=== PATIENT | male | born 1960 | race Caucasian/White ===

== ENCOUNTER 2019-05-11 19:41 | Observation (INO) | payer BC ==
[2019-05-11] MEDS ORDERED: LABETALOL 5 MG/ML VIAL MDV IVP STA (20:21)
[2019-05-11 20:41] LABS: Basophils # (A) 0.3 k/uL (0-0.2); Basophils % (A) 2 %; Eosinophils # (A) 0.2 k/uL (0-0.7); Eosinophils % (A) 2 %; HGB 16.2 gm/dL (13.0-17.5); Lymphocytes % (A) 7 %; MCH 34.3 pg (25.0-35.0); MCHC 33.9 g/dL (31.0-37.0); MCV 101.4 fL (80.0-100.0); Macrocytosis Slight; Mean Platelet Volume 7.5; Monocytes # (A) 0.9 k/uL (0-1.0); Monocytes % (A) 7 %; Neutrophils # (A) 10.3 k/uL (1.3-7.7); Neutrophils % (A) 80 %; Platelet Count 209 k/uL (150-450); RBC 4.73 m/uL (4.30-5.90); RDW 12.9 % (11.5-15.5); WBC 12.9 k/uL (3.8-10.6)
[2019-05-11 20:50] LABS: INR 0.9 (<1.2); Partial Thromboplastin Time 24.9 sec (22.0-30.0); Prothrombin Time 9.9 sec (9.0-12.0)
[2019-05-11 20:53] LABS: ALT 33 U/L (4-49); AST 61 U/L (17-59); African American GFR (CKD) >90 (>60 ml/min/1.73 sqM); Albumin 4.5 g/dL (3.5-5.0); Alkaline Phosphatase 64 U/L (38-126); Anion Gap 11 mmol/L; Blood Urea Nitrogen 11 mg/dL (9-20); Calcium 9.9 mg/dL (8.4-10.2); Carbon Dioxide 23 mmol/L (22-30); Chloride 97 mmol/L (98-107); Glucose 111 mg/dL (74-99); Magnesium 1.8 mg/dL (1.6-2.3); Non-African American GFR(CKD) >90 (>60 ml/min/1.73 sqM); Potassium 4.5 mmol/L (3.5-5.1); Sodium 131 mmol/L (137-145); Total Bilirubin 1.1 mg/dL (0.2-1.3); Total Protein 7.9 g/dL (6.3-8.2)
--- NOTE | 2019-05-11 21:19 | XR ---
EXAMINATION TYPE: XR chest 2V DATE OF EXAM: 05/11/2019 COMPARISON: NONE HISTORY: Chest pain TECHNIQUE: 2 views FINDINGS: Heart and mediastinum are normal. Lungs are clear. Diaphragm is normal. Bony thorax appears normal. IMPRESSION: Normal chest.
--- NOTE | 2019-05-11 21:48 | CT ---
EXAMINATION TYPE: CT angio thor/abd pel aorta DATE OF EXAM: 05/11/2019 COMPARISON: None HISTORY: Chest/back pain and hypertension. CT DLP: 2474.8 mGycm Automated exposure control for dose reduction was used. CONTRAST: Performed without and with IV Contrast, patient injected with 100ml mL of Isovue 370. Multiple axial sections were obtained from the thoracic inlet to the floor the pelvis without and sub sequently with intravenous contrast. There are 3-D post processed images. There is diffuse pulmonary emphysema. There is bullous disease. There is no evidence of a pulmonary m ass. There is no mediastinal adenopathy. There is 4.2 cm aneurysm of the ascending aorta. There is no diss ection. Heart size is normal. There is arterial flow in the celiac artery and superior mesenteric artery. There is arterial flow in the renal arteries bilaterally. There is mild plaque formation on the lower abdominal aorta. There i s no aortic aneurysm. There is arterial flow in the iliac and femoral arteries bilaterally. I see no sign of hemodynamic stenosis. There is no aortic dissection. Liver spleen stomach pancreas gallbladder appear normal. Bile ducts are not dilated. There is no adre nal mass. Kidneys show satisfactory contrast opacification. There is no hydronephrosis. Appendix appe ars normal. Bladder distends smoothly. There is no inguinal hernia. There is no free fluid in the pel vis. There is no ascites or free air. There is no evidence of a bowel obstruction. There is no mesenteric edema. There are numerous scattered sigmoid diverticula. There is no sign of diverticulitis. Lumbar vertebra have normal alignment. There is narrowing at L4-5 L5-S1 disc spaces. There is vacuum disc phenomenon. Posterior elements are intact. Sacrum is intact. Bony pelvis appears intact. There i s small umbilical hernia that contains fat. IMPRESSION: Mild atherosclerotic vascular disease. No evidence of hemodynamic stenosis. No evidence of arterial d issection. Mild aneurysm ascending aorta. Bullous emphysema.
[2019-05-11] MEDS ORDERED: NITROGLYCERIN SL TABS 0.4 MG TAB SUBLINGUAL PRN (22:23)
--- NOTE | 2019-05-11 22:31 | ED ---
General Adult HPI - General Source: patient, EMS Mode of arrival: EMS Limitations: no limitations <Yanna Arevalo - Last Filed: 05/12/19 00:07> <Cheri Rivera - Last Filed: 05/13/19 15:15> - General Chief complaint: Chest Pain Stated complaint: Chest Pain Time Seen by Provider: 05/11/19 19:46 - History of Present Illness Initial comments: 58-year-old male patient presents to the emergency department today for evaluation of chest pain. Patient states the pain started this morning. States with the pain he had onset of nausea, sweats, and mild shortness of breath. States the pain does radiate through to his back. Denies any change to the pain with deep breathing or movement. Denies any dizziness or weakness. Patient states he did have she with chest pain around 10 years ago, states his troponin was elevated, states he had a negative stress test at that time. He has no further evaluation by cardiology, stress test, cardiac catheterization since. Patient was brought in by ambulance, he was given 3 nitro, states this did improve his chest pain. States his back pain has persisted. Patient does have history of hypertension, chronic alcohol use, and is a cigarette smoker. Patient recently had his blood pressure medications increased by his physician. Patient denies any known aortic aneurysm. Patient denies any recent rash, fever, chills, diarrhea, constipation, back pain, numbness, tingling, dizziness, weakness, hematuria, dysuria, urinary urgency, urinary frequency, headache, visual changes, or any other complaints. (Yanna Arevalo) - Related Data Home Medications Medication Instructions Recorded Confirmed Hydrochlorothiazide 25 mg PO DAILY 05/11/19 05/11/19 Lisinopril 40 mg PO DAILY 05/11/19 05/11/19 Previous Rx's Medication Instructions Recorded amLODIPine [Norvasc] 5 mg PO DAILY #90 tab 05/12/19 Allergies Allergy/AdvReac Type Severity Reaction Status Date / Time Penicillins Allergy Anaphylaxis Verified 05/11/19 23:05 Review of Systems ROS Other: All systems not noted in ROS Statement are negative. <Yanna Arevalo - Last Filed: 05/12/19 00:07> ROS Other: All systems not noted in ROS Statement are negative. <Cheri Rivera - Last Filed: 05/13/19 15:15> ROS Statement: Those systems with pertinent positive or pertinent negative responses have been documented in the HPI. Past Medical History Past Medical History: Hypertension, Sleep Apnea/CPAP/BIPAP Past Surgical History: No Surgical Hx Reported Smoking Status: Current every day smoker Past Alcohol Use History: Daily, Heavy Past Drug Use History: None Reported <Yanna Arevalo - Last Filed: 05/12/19 00:07> General Exam Limitations: no limitations General appearance: alert, in no apparent distress, other (This is a well- developed, well-nourished, nontoxic-appearing adult male patient in no acute distress. Vital signs upon presentation are temperature 98.6F, pulse 92, respirations 18, blood pressure 192/116, pulse ox 96% on room air.) Eye exam: Present: normal appearance, PERRL, EOMI. Absent: scleral icterus, conjunctival injection, periorbital swelling ENT exam: Present: normal exam, normal oropharynx, mucous membranes moist Respiratory exam: Present: normal lung sounds bilaterally. Absent: respiratory distress, wheezes, rales, rhonchi, stridor Cardiovascular Exam: Present: regular rate, normal rhythm, normal heart sounds. Absent: systolic murmur, diastolic murmur, rubs, gallop, clicks GI/Abdominal exam: Present: soft, tenderness (Midepigastric), normal bowel sounds. Absent: distended, guarding, rebound, rigid Neurological exam: Present: alert, oriented X3, CN II-XII intact Psychiatric exam: Present: normal affect, normal mood Skin exam: Present: warm, dry, intact, normal color. Absent: rash <Yanna Arevalo - Last Filed: 05/12/19 00:07> Course Vital Signs 05/11/19 05/11/19 05/11/19 19:50 21:15 22:49 Temperature 98.6 F Pulse Rate 92 96 82 Respiratory 18 18 18 Rate Blood Pressure 192/116 130/93 160/105 O2 Sat by Pulse 96 98 98 Oximetry 05/12/19 05/12/19 05/12/19 01:08 02:03 05:08 Temperature Pulse Rate 78 85 75 Respiratory 18 18 19 Rate Blood Pressure 125/84 156/87 131/90 O2 Sat by Pulse 97 98 98 Oximetry 05/12/19 08:09 Temperature 98.0 F Pulse Rate 74 Respiratory 16 Rate Blood Pressure 141/100 O2 Sat by Pulse 98 Oximetry EKG Findings - EKG Comments: EKG Findings:: EKG obtained at 1948 shows normal sinus rhythm with a ventricular rate of 89, GA interval 150, QRS duration 100, QT 338, QTC 411. No evidence of ST elevation or depression. <Yanna Arevalo - Last Filed: 05/12/19 00:07> Medical Decision Making - Lab Data Result diagrams: 05/11/19 19:56 05/11/19 19:56 - Radiology Data Radiology results: report reviewed, image reviewed <Yanna Arevalo - Last Filed: 05/12/19 00:07> - Lab Data Result diagrams: 05/12/19 07:23 05/12/19 07:23 <Cheri Rivera - Last Filed: 05/13/19 15:15> - Medical Decision Making 58 year-old male patient presents to the emergency department today for evaluation of chest pain with radiation through to his back. With this patient had associated sweats, nausea, one episode of vomiting, and shortness of breath. Upon arrival blood pressure was quite elevated at 191/109. Labs reviewed and did reveal a negative troponin, negative lipase. We did perform CT angiography of the thoracic abdominal and pelvic aorta which showed evidence for an ascen ding aortic aneurysm measuring 4.2 cm. EKG showed no evidence for ST depression or elevation. I did discuss findings and results with the patient. Given risk factors including alcohol abuse, cigarette use, hypertension, and family history of cardiac [id number] male to the hospital for serial troponins and evaluation by cardiology in the morning. I did inform patient of all results. He is in agreement with this plan. He'll be admitted to Dr. Hughes from [facility]. (Yanna Arevalo) I was available for consultation in the emergency department. The history and physical exam were done by the midlevel provider. I was consulted for this patients care. I reviewed the case with the midlevel provider and based on their presentation of the patient, I agree with the assessment, medical decision making and plan of care as documented. Chart was dictated using [employer] dictation software. Attempts were made to correct any dictation errors however some typographical errors may persist. (Cheri Rivera) - Lab Data Lab Results 05/11/19 05/11/19 05/11/19 Range/Units 19:56 19:56 19:56 WBC 12.9 H (3.8-10.6) k/uL RBC 4.73 (4.30-5.90) m/uL Hgb 16.2 (13.0-17.5) gm/dL Hct 48.0 (39.0-53.0) % MCV 101.4 H (80.0-100.0) fL MCH 34.3 (25.0-35.0) pg MCHC 33.9 (31.0-37.0) g/dL RDW 12.9 (11.5-15.5) % Plt Count 209 (150-450) k/uL Neutrophils % 80 % Lymphocytes % 7 % Monocytes % 7 % Eosinophils % 2 % Basophils % 2 % Neutrophils # 10.3 H (1.3-7.7) k/uL Lymphocytes # 1.0 (1.0-4.8) k/uL Monocytes # 0.9 (0-1.0) k/uL Eosinophils # 0.2 (0-0.7) k/uL Basophils # 0.3 H (0-0.2) k/uL Macrocytosis Slight PT 9.9 (9.0-12.0) sec INR 0.9 (<1.2) APTT 24.9 (22.0-30.0) sec Sodium 131 L (137-145) mmol/L Potassium 4.5 (3.5-5.1) mmol/L Chloride 97 L (98-107) mmol/L Carbon Dioxide 23 (22-30) mmol/L Anion Gap 11 mmol/L BUN 11 (9-20) mg/dL Creatinine 0.72 (0.66-1.25) mg/dL Est GFR (CKD-EPI)AfAm >90 (>60 ml/min/1.73 sqM) Est GFR (CKD-EPI)NonAf >90 (>60 ml/min/1.73 sqM) Glucose 111 H (74-99) mg/dL Calcium 9.9 (8.4-10.2) mg/dL Magnesium 1.8 (1.6-2.3) mg/dL Total Bilirubin 1.1 (0.2-1.3) mg/dL AST 61 H (17-59) U/L ALT 33 (4-49) U/L Alkaline Phosphatase 64 (38-126) U/L Troponin I (0.000-0.034) ng/mL Total Protein 7.9 (6.3-8.2) g/dL Albumin 4.5 (3.5-5.0) g/dL Lipase 137 (23-300) U/L 05/11/19 Range/Units 19:56 WBC (3.8-10.6) k/uL RBC (4.30-5.90) m/uL Hgb (13.0-17.5) gm/dL Hct (39.0-53.0) % MCV (80.0-100.0) fL MCH (25.0-35.0) pg MCHC (31.0-37.0) g/dL RDW (11.5-15.5) % Plt Count (150-450) k/uL Neutrophils % % Lymphocytes % % Monocytes % % Eosinophils % % Basophils % % Neutrophils # (1.3-7.7) k/uL Lymphocytes # (1.0-4.8) k/uL Monocytes # (0-1.0) k/uL Eosinophils # (0-0.7) k/uL Basophils # (0-0.2) k/uL Macrocytosis PT (9.0-12.0) sec INR (<1.2) APTT (22.0-30.0) sec Sodium (137-145) mmol/L Potassium (3.5-5.1) mmol/L Chloride (98-107) mmol/L Carbon Dioxide (22-30) mmol/L Anion Gap mmol/L BUN (9-20) mg/dL Creatinine (0.66-1.25) mg/dL Est GFR (CKD-EPI)AfAm (>60 ml/min/1.73 sqM) Est GFR (CKD-EPI)NonAf (>60 ml/min/1.73 sqM) Glucose (74-99) mg/dL Calcium (8.4-10.2) mg/dL Magnesium (1.6-2.3) mg/dL Total Bilirubin (0.2-1.3) mg/dL AST (17-59) U/L ALT (4-49) U/L Alkaline Phosphatase (38-126) U/L Troponin I <0.012 (0.000-0.034) ng/mL Total Protein (6.3-8.2) g/dL Albumin (3.5-5.0) g/dL Lipase (23-300) U/L - Radiology Data Two-view x-ray of the chest is obtained. Report reviewed in its entirety. Impression by Dr. German shows normal chest. CT angiography of the thoracic, abdominal, pelvic aorta was obtained. Report was reviewed in its entirety. Impression by Dr. Kearney shows mild atherosclerotic vascular disease. No evidence of hemodynamic stenosis. No evidence of arterial dissection. Mild aneurysm ascending aorta. Bolus emphysema. (Yanna Arevalo) Disposition Decision to Admit Reason: Admit from EC Decision Date: 05/11/19 Decision Time: 22:30 <Yanna Arevalo - Last Filed: 05/12/19 00:07> <Cheri Rivera - Last Filed: 05/13/19 15:15> Clinical Impression: Chest pain, Hypertension, Ascending aortic aneurysm Disposition: ADMITTED IP TO THIS [facility] Condition: Stable
[2019-05-12] MEDS ORDERED: hydrALAZINE HCL 25 MG TAB PO STA (00:36)
--- NOTE | 2019-05-12 00:40 | P.HPIM ---
History of Present Illness H&P Date: 05/12/19 The patient is a 58 yo M with a PMH of tobacco abuse and HTN presented to the ED with complaints of chest pain. The patient reports that after working up this morning at around 8 AM, he suddenly developed a substernal chest discomfort, 4/10, radiating to the back, pressure-like in nature, with associated nausea, and headache. The patient reports that he never had such symptoms the past. The pain was nonexertional with no clear alleviating or exacerbating factors. He checked his blood pressure at home and noted that it was significantly high with systolic in the 190s. He reports compliance with his antihypertensives at home. He denied shortness of breath, palpitations, dizziness, or diaphoresis. He reports that the pain continued all day until he received a nitroglycerin upon presentation to the emergency room, which resolved it. Patient underwent an extensive evaluation in the emergency room with an EKG showing normal sinus rhythm at [address]/T-wave changes noted. Thoracic aorta CT revealed mild ascending aortic aneurysm with no evidence of dissection along with some bullous emphysema. Chest x-ray was unremarkable. Laboratory evaluation revealed a troponin less than 0.012, WBC count 4.9, hemoglobin 16.2, platelets 209, sodium 131, potassium 4.5, BUN 11, creatinine 0.72, and glucose 111. The patient is being admitted to the medicine service for evaluation by cardiology. Review of Systems Pertinent positives and negatives as discussed in HPI, a complete review of systems was performed and all other systems are negative. Past Medical History Past Medical History: Hypertension, Sleep Apnea/CPAP/BIPAP Past Surgical History: No Surgical Hx Reported Smoking Status: Current every day smoker Past Alcohol Use History: Daily, Heavy Past Drug Use History: None Reported Medications and Allergies Home Medications Medication Instructions Recorded Confirmed Type Hydrochlorothiazide 25 mg PO DAILY 05/11/19 05/11/19 History Lisinopril 40 mg PO DAILY 05/11/19 05/11/19 History Allergies Allergy/AdvReac Type Severity Reaction Status Date / Time Penicillins Allergy Anaphylaxis Verified 05/11/19 23:05 Physical Exam Vitals: Vital Signs Temp Pulse Resp BP Pulse Ox 05/11/19 22:49 82 18 160/105 98 05/11/19 21:15 96 18 130/93 98 05/11/19 19:50 98.6 F 92 18 192/116 96 Intake and Output 05/11/19 05/11/19 05/12/19 14:59 22:59 06:59 Other: Weight 102.058 kg General: non toxic, no distress, appears at stated age, obese Derm: no unusual rashes/lesions no unusual ecchymoses, warm, dry Head: atraumatic, normocephalic, symmetric Eyes: EOMI, no lid lag, anicteric sclera, pupils equal round reactive to light ENT: Nose and ears atraumatic, no thrush, no pharyngeal erythema Neck: No thyromegaly, no cervical lymphadenopathy, trachea midline, supple Mouth: no lip lesion, mucus membranes moist Cardiovascular: S1S2 reg, no murmur, positive posterior tibial pulse bilateral, no edema, capillary refill less than 2 seconds Lungs: Mild expiratory wheezing appreciated, no rhonchi, no rales , no accessory muscle use Abdominal: soft, nontender to palpation, no guarding, no appreciable organomegaly, normal bowel sounds Ext: no gross muscle atrophy, muscle strength 5 out of 5 in all 4 extremities grossly, no contractures, Neuro: CN II-XI grossly intact, light touch intact all 4 extremities, finger to nose within normal limits, Psych: Alert, oriented, appropriate affect Results CBC & Chem 7: 05/11/19 19:56 05/11/19 19:56 Labs: Abnormal Lab Results - Last 24 Hours (Table) 05/11/19 05/11/19 Range/Units 19:56 19:56 WBC 12.9 H (3.8-10.6) k/uL MCV 101.4 H (80.0-100.0) fL Neutrophils # 10.3 H (1.3-7.7) k/uL Basophils # 0.3 H (0-0.2) k/uL Sodium 131 L (137-145) mmol/L Chloride 97 L (98-107) mmol/L Glucose 111 H (74-99) mg/dL AST 61 H (17-59) U/L Assessment and Plan Plan: Chest pain, rule out ACS -Cardiology consulted -Cardiac monitoring -Trend troponin -Continue with aspirin Hypertensive urgency -Continue with home medications -Start hydralazine orally Ascending aorta aneurysm -Patient advised on the importance of smoking cessation -Advised for the need of f/u Leukocytosis -No signs of acute infection -Likely due to stress -Monitor CBC for now Hyponatremia -Monitor BMP DVT prophylaxis -Heparin subq The patient is admitted with an anticipated less than 2 midnight stay for evaluation of chest pain CODE STATUS: Full Code Discussed with: Patient Anticipated discharge date: 1-[address]: Home A total of 35 minutes was spent on the care of this complex patient more than 50% of the time was spent in counseling and care coordination.
[2019-05-12] MEDS ORDERED: ACETAMINOPHEN TAB 325 MG TAB PO STA (02:01)
[2019-05-12 07:43] LABS: HCT 46.5 % (39.0-53.0); HGB 15.5 gm/dL (13.0-17.5); MCH 34.5 pg (25.0-35.0); MCHC 33.4 g/dL (31.0-37.0); MCV 103.2 fL (80.0-100.0); Macrocytosis Slight; Mean Platelet Volume 7.1; Platelet Count 192 k/uL (150-450); RBC 4.51 m/uL (4.30-5.90); RDW 13.1 % (11.5-15.5); WBC 6.6 k/uL (3.8-10.6)
[2019-05-12] MEDS ORDERED: HEPARIN SODIUM,PORCINE 5,000 UNIT/ML 1 ML VIAL SQ SCH (08:00)
[2019-05-12 08:08] LABS: African American GFR (CKD) >90 (>60 ml/min/1.73 sqM); Anion Gap 7 mmol/L; Blood Urea Nitrogen 11 mg/dL (9-20); Calcium 9.7 mg/dL (8.4-10.2); Carbon Dioxide 27 mmol/L (22-30); Chloride 99 mmol/L (98-107); Cholesterol 196 mg/dL (<200); Glucose 113 mg/dL (74-99); HDL Cholesterol 54 mg/dL (40-60); LDL Cholesterol,Calculated 93 mg/dL (0-99); Non-African American GFR(CKD) >90 (>60 ml/min/1.73 sqM); Potassium 4.6 mmol/L (3.5-5.1); Sodium 133 mmol/L (137-145); Triglycerides 247 mg/dL (<150)
[2019-05-12 08:09] VITALS: RESP 16
[2019-05-12] MEDS ORDERED: ASPIRIN 325 MG TAB PO SCH (09:00)
[2019-05-12] MEDS ORDERED: LISINOPRIL 20 MG TAB PO SCH (09:00)
[2019-05-12] MEDS ORDERED: HYDROCHLOROTHIAZIDE 25 MG TAB PO SCH (09:00)
[2019-05-12] MEDS ORDERED: CAFFEINE CITRATE 60 MG/3 ML VIAL IV PRN (09:24)
[2019-05-12] MEDS ORDERED: AMINOPHYLLINE 500 MG/20 ML VIAL IV PRN (09:24)
[2019-05-12] MEDS ORDERED: REGADENOSON 0.4 MG/5 ML SYRINGE IV ONE (09:24)
[2019-05-12] MEDS ORDERED: amLODIPine 5 MG TAB PO SCH (09:30)
[2019-05-12] MEDS ORDERED: ALPRAZolam 0.25 MG TAB PO STA (10:23)
[2019-05-12] MEDS ORDERED: NICOTINE 21MG/24HR PATCH TRANSDERM SCH (10:30)
[2019-05-12 11:10] VITALS: TEMP 98.2
--- NOTE | 2019-05-12 11:45 | P.CRDCN ---
History of Present Illness History of present illness: HISTORY OF PRESENTING ILLNESS This is a pleasant 58-year-old male past medical history significant for hypertension, COPD, chronic nicotine dependence, daily heavy alcohol use and chronic liver disease. The patient is here working from [place]. He does not follow in the office with a guardian family member in [place]. We have been asked to see in consultation for chest pain. He has been here working for a few weeks. He states he has not a very active job currently however while he was at work yesterday he was having frequent episodes of diaphoresis and exertional shortness of breath associated with discomfort in the chest and some mild nausea. His symptoms occurred at rest and were not associated with activity or exertion. At times the pain would radiate straight through to his back. EMS gave nitroglycerin on arrival and this should resolve his chest discomfort howev er he continues to have pain in the mid scapular region of his back that is worse with movement and improved with deep palpation. DIAGNOSTICS EKG reveals sinus mechanism with no acute ST or T wave abnormalities noted. Chest xray negative for an acute cardiopulmonary process. CT thoracic aorta negative for dissection with evidence of atherosclerotic disease. Laboratory reviewed, to be WBC on admission 12.9 repeat today 6.6, hemoglobin 15.5, platelets 192, sodium 133, potassium 4.6, creatinine 0.87, magnesium 1.8, cardiac enzymes negative 3, LDL 93, triglycerides 247. Current cardiac medications include lisinopril 40 mg daily and hydrochlorothiazide 25 mg daily. REVIEW OF SYSTEMS At the time of my exam: CONSTITUTIONAL: Denies fever or chills. CARDIOVASCULAR: Denies chest pain, shortness of breath, orthopnea, PND or palpitations. RESPIRATORY: Denies cough. GASTROINTESTINAL: Denies abdominal pain, diarrhea, constipation, nausea or vomiting. MUSCULOSKELETAL: Denies myalgias. NEUROLOGIC: Denies numbness, tingling or weakness. ENDOCRINE: Denies fatigue, weight change, polydipsia or polyurina. GENITOURINARY: Denies burning, hematuria or urgency with micturation. HEMATOLOGIC: Denies history of anemia or bleeding. PHYSICAL EXAMINATION Blood pressure 141/100 heart rate 74 afebrile and maintaining oxygen saturation on room air. CONSTITUTIONAL: No apparent distress. Generalized rubor to the face and neck. HEENT: Head is normocephalic. Pupils are equal, round. Sclerae anicteric. Mucous membranes of the mouth are moist. No JVD. No carotid bruit. CHEST EXAMINATION: Faint expiratory wheezes throughout, no rales or rhonchi. No chest wall tenderness is noted on palpation or with deep breathing. HEART EXAMINATION: Regular rate and rhythm. S1, S2 heard. No murmurs, gallops or rub. ABDOMEN: Soft, nontender. Positive bowel sounds. EXTREMITIES: 2+ peripheral pulses, no lower extremity edema and no calf tenderness. NEUROLOGIC EXAMINATION: Patient is awake, alert and oriented x3. ASSESSMENT Chest pain, atypical. An acute event has been ruled out. Hypertension, uncontrolled Hypertriglyceridemia Chronic nicotine dependence Heavy daily alcohol abuse PLAN An acute event has been ruled out. Obtain 2D echocardiogram and doppler study to assess cardiac structure and function. Perform Lexiscan stress test to assess for reversible cardiac ischemia. Continue lisinopril and hydrochlorothiazide as previously ordered. Initiate amlodipine 5 mg daily. Watch closely for alcohol withdrawl as he is already quite anxious appearing. Give one dose of xanax and apply nicotine patch. Further recommendations to follow based on clinical course. Thank you kindly for this consultation. Nurse Practitioner note has been reviewed, I agree with a documented findings and plan of care. Patient was seen and examined. Past Medical History Past Medical History: COPD, Hypertension, Liver Disease, Sleep Apnea/CPAP/BIPAP Additional Past Medical History / Comment(s): Uncontrolled HTN, chest pain approximately 10 yrs ago with negative stress test, currently being evaluated for PAULA (pt states he failed first part of test), frequent headaches, bronchitis, fatty liver, umbilical hernia. History of Any Multi-Drug Resistant Organisms: None Reported Past Surgical History: Orthopedic Surgery Additional Past Surgical History / Comment(s): Colonoscopy, ganglion cyst removed R wrist, lump removed back of head. Past Anesthesia/Blood Transfusion Reactions: No Reported Reaction Smoking Status: Current every day smoker - Past Family History Father Family Medical History: Myocardial Infarction ([place]) Additional Family Medical History / Comment(s): Father of a [place] at the age of 78yrs. Mother Family Medical History: Vascular Disorder Additional Family Medical History / Comment(s): Mother is alive. She has caratid artery disease. Medications and Allergies Home Medications Medication Instructions Recorded Confirmed Type Hydrochlorothiazide 25 mg PO DAILY 05/11/19 05/11/19 History Lisinopril 40 mg PO DAILY 05/11/19 05/11/19 History Allergies Allergy/AdvReac Type Severity Reaction Status Date / Time Penicillins Allergy Anaphylaxis Verified 05/11/19 23:05 Physical Exam Vitals: Vital Signs Temp Pulse Resp BP Pulse Ox 05/12/19 08:09 98.0 F 74 16 141/100 98 05/12/19 05:08 75 19 131/90 98 05/12/19 02:03 85 18 156/87 98 05/12/19 01:08 78 18 125/84 97 05/11/19 22:49 82 18 160/105 98 05/11/19 21:15 96 18 130/93 98 05/11/19 19:50 98.6 F 92 18 192/116 96 Intake and Output 05/11/19 05/12/19 05/12/19 22:59 06:59 14:59 Other: Weight 102.058 kg 102.058 kg Results 05/12/19 07:23 05/12/19 07:23 Cardiac Enzymes 05/11/19 05/11/19 05/12/19 Range/Units 19:56 19:56 01:58 AST 61 H (17-59) U/L Troponin I <0.012 <0.012 (0.000-0.034) ng/mL 05/12/19 Range/Units 08:13 AST (17-59) U/L Troponin I <0.012 (0.000-0.034) ng/mL Coagulation 05/11/19 Range/Units 19:56 PT 9.9 (9.0-12.0) sec APTT 24.9 (22.0-30.0) sec Lipids 05/12/19 Range/Units 07:23 Triglycerides 247 H (<150) mg/dL Cholesterol 196 (<200) mg/dL HDL Cholesterol 54 (40-60) mg/dL CBC 05/11/19 05/12/19 Range/Units 19:56 07:23 WBC 12.9 H 6.6 (3.8-10.6) k/uL RBC 4.73 4.51 (4.30-5.90) m/uL Hgb 16.2 15.5 (13.0-17.5) gm/dL Hct 48.0 46.5 (39.0-53.0) % Plt Count 209 192 (150-450) k/uL Comprehensive Metabolic Panel 05/11/19 05/12/19 Range/Units 19:56 07:23 Sodium 131 L 133 L (137-145) mmol/L Potassium 4.5 4.6 (3.5-5.1) mmol/L Chloride 97 L 99 (98-107) mmol/L Carbon Dioxide 23 27 (22-30) mmol/L BUN 11 11 (9-20) mg/dL Creatinine 0.72 0.87 (0.66-1.25) mg/dL Glucose 111 H 113 H (74-99) mg/dL Calcium 9.9 9.7 (8.4-10.2) mg/dL AST 61 H (17-59) U/L ALT 33 (4-49) U/L Alkaline Phosphatase 64 (38-126) U/L Total Protein 7.9 (6.3-8.2) g/dL Albumin 4.5 (3.5-5.0) g/dL Current Medications Generic Name Dose Route Start Last Admin Trade Name Freq PRN Reason Stop Dose Admin Aminophylline 100 mg 05/12/19 09:24 Aminophylline IV ONCE PRN Patient Response Amlodipine Besylate 5 mg 05/12/19 09:30 05/12/19 10:37 Norvasc PO 5 mg DAILY TEMO Administration Aspirin 325 mg 05/12/19 09:00 05/12/19 08:37 Aspirin PO 325 mg DAILY TEMO Administration Caffeine Citrate 60 mg 05/12/19 09:24 Cafcit Inj IV 06/11/19 09:25 ONCE PRN Patient Response Heparin Sodium (Porcine) 5,000 unit 05/12/19 08:00 05/12/19 08:37 Heparin SQ 5,000 unit Q8HR TEMO Administration Hydrochlorothiazide 25 mg 05/12/19 09:00 05/12/19 08:37 Hydrodiuril PO 25 mg DAILY TEMO Administration Lisinopril 40 mg 05/12/19 09:00 05/12/19 08:37 Zestril PO 40 mg DAILY TEMO Administration Nicotine 1 patch 05/12/19 10:30 Habitrol 21mg/24hr Patch TRANSDERM DAILY TEMO Nitroglycerin 0.4 mg 05/11/19 22:23 Nitrostat SUBLINGUAL Q5M PRN Chest Pain Sodium Chloride 10 ml 05/12/19 09:00 Saline Flush IV BID TEMO Intake and Output 05/11/19 05/12/19 05/12/19 22:59 06:59 14:59 Other: Weight 102.058 kg 102.058 kg Patient Weight 05/13/19 06:59 Weight 102.058 kg 05/12/19 07:23 05/12/19 07:23
[2019-05-12] MEDS ORDERED: LORazepam 2 MG/ML INJ IV PRN ×3 (12:17)
[2019-05-12] MEDS ORDERED: THIAMINE 100 MG/ML 2 ML VIAL IM STA (12:17)
--- NOTE | 2019-05-12 13:46 | NM ---
EXAMINATION TYPE: NM stress lexiscan cardiolite DATE OF EXAM: 05/12/2019 COMPARISON: CTA from yesterday HISTORY: History of COPD and tobacco use along with hypertension presents with wheezing and chest jessica n radiating to back TECHNIQUE: After the intravenous administration of 9.6 mCi Tc 99m Sestamibi - Cardiolite resting SPE CT images acquired 45 minutes post injection. The patient received 0.4mg Lexiscan, 26.3 mCi Tc 99m Sestamibi - Stress images obtained [address] injection FINDINGS: Review of stress and rest SPECT images demonstrates no distinct perfusion abnormality. Gated analysi s shows normal wall motion with an estimated left ventricular ejection fraction of 61 % on the stress ed images. IMPRESSION: No scintigraphic evidence for reversible ischemia.
[2019-05-12 14:44] VITALS: BP 158/92; PULSE 72
--- NOTE | 2019-05-12 16:13 | P.DS ---
Providers Date of admission: 05/11/19 22:14 Attending physician: Ananda Hughes MD Consults: 05/11/19 22:24 Consult Physician Urgent Consulting Provider: [facility] Consult Reason/Comments: Chest Pain Do you want consulting provider notified?: Yes Primary care physician: Physician Nonstaff Hospital Course: final diagnosis on discharge Hypertensive urgency, resolved Chest pain, negative stress test The patient is a 58 yo M with a PMH of tobacco abuse and HTN presented to the ED with complaints of chest pain. He reports that the pain continued all day until he received a nitroglycerin upon presentation to the emergency room, which resolved it. Patient underwent an extensive evaluation in the emergency room with an EKG showing normal sinus rhythm at [address]/T-wave changes noted. Thoracic aorta CT revealed mild ascending aortic aneurysm with no evidence of dissection along with some bullous emphysema. Chest x-ray was unremarkable. Laboratory evaluation revealed a troponin less than 0.012, WBC count 4.9, hemoglobin 16.2, platelets 209, sodium 131, potassium 4.5, BUN 11, creatinine 0.72, and glucose 111. The patient is being admitted to the medicine service for evaluation by cardiology. Patient seen and examined on discharge day reports no chest pain or trouble breathing Tolerated procedure well. Vital signs stable Alert oriented to place time of person, pleasant conversant Lungs clear to auscultation bilaterally no wheezing Cardiac normal S1 and S2 regular rate rhythm no murmurs Extremities no leg edema bilaterally no tenderness palpation of the calf muscles Patient cleared from cardiology standpoint for discharge. Negative stress test Medications adjusted amlodipine added to his home meds 40 minutes were spent discharging this patient, and more than 50% of the time was spent in counseling the patient and family and in coordinating care. Patient Condition at Discharge: Stable Plan - Discharge Summary Discharge Rx Participant: No New Discharge Prescriptions: New amLODIPine [Norvasc] 5 mg PO DAILY #90 tab Continue Lisinopril 40 mg PO DAILY Hydrochlorothiazide 25 mg PO DAILY Discharge Medication List Hydrochlorothiazide 25 mg PO DAILY 05/11/19 [History] Lisinopril 40 mg PO DAILY 05/11/19 [History] amLODIPine [Norvasc] 5 mg PO DAILY #90 tab 05/12/19 [Rx] Follow up Appointment(s)/Referral(s): Nonstaff,Physician [Primary Care Provider] - 1-2 days Patient Instructions/Handouts: Angina (DC), How to Stop Smoking (DC), Cigarette Smoking and Your Health (GEN), Hypertensive Crisis (DC) Activity/Diet/Wound Care/Special Instructions: Follow up with [employer] in [place] as scheduled. Discharge Disposition: HOME SELF-CARE
[2019-05-12] MEDS ORDERED: THIAMINE 100 MG TAB PO SCH (17:30)
--- NOTE | 2019-05-13 12:58 | P.STRESS ---
- Stress Test Note Stress Test Results/Findings: Exam Performed: NM stress lexiscan cardiolite Exam Date: 05/12/19 Reason for Exam: CHEST PAIN Height: 5 ft 10 in Weight: 102.06 kg Protocol: LEXISCAN Stage: NA Duration of Exercise: NA Resting Heart Rate: 76 Resting Blood Pressure: 123/85 Maximum Achieved Heart Rate: 115 Maximum Achieved Blood Pressure: 123/65 85% PMHR: NA 100% PMHR: NA METS: NA Technologist Comment: Stress Test Results/Findings: This is a 58-year-old gentleman with history of hypertension and smoking being evaluated for symptoms of chest pain and shortness of breath. Stress data: Baseline EKG showed sinus rhythm with normal [place] interval, QRS duration. Blood pressure at rest is 123/85, pulse rate of 76. A standard dose of Lexiscan was infused. EKGs taken during and after infusion did not reveal any significant changes from the baseline. Final impression: #1. Negative Lexiscan stress test #2. Report on the nuclear images to be given by the radiologist
--- NOTE | 2019-05-13 14:00 | EST ---
Stress Test Results/Findings: Exam Performed: NM stress lexiscan cardiolite Exam Date: 05/12/19 Reason for Exam: CHEST PAIN Height: 5 ft 10 in Weight: 102.06 kg Protocol: LEXISCAN Stage: NA Duration of Exercise: NA Resting Heart Rate: 76 Resting Blood Pressure: 123/85 Maximum Achieved Heart Rate: 115 Maximum Achieved Blood Pressure: 123/65 85% PMHR: NA 100% PMHR: NA METS: NA Technologist Comment: Stress Test Results/Findings: This is a 58-year-old gentleman with history of hypertension and smoking being evaluated for symptoms of chest pain and shortness of breath. Stress data: Baseline EKG showed sinus rhythm with normal HI interval, QRS duration. Blood pressure at rest is 123/85, pulse rate of 76. A standard dose of Lexiscan was infused. EKGs taken during and after infusion did not reveal any significant changes from the baseline. Final impression: #1. Negative Lexiscan stress test #2. Report on the nuclear images to be given by the radiologist ARPAN
== END 2019-05-12 15:24 | disposition home or self-care (01) ==
LOC: EC 19:41 → 1SOBS 22:14
PROVIDERS: ADMIT Internal Medicine; ATTEND Internal Medicine
DX: I16.0 Hypertensive urgency (principal); I10 Essential (primary) hypertension; D72.829 Elevated white blood cell count, unspecified; F17.210 Nicotine dependence, cigarettes, uncomplicated; F10.10 Alcohol abuse, uncomplicated; I71.2 Thoracic aortic aneurysm, without rupture; E78.5 Hyperlipidemia, unspecified; G47.30 Sleep apnea, unspecified; K76.0 Fatty (change of) liver, not elsewhere classified; K42.9 Umbilical hernia without obstruction or gangrene; E87.1 Hypo-osmolality and hyponatremia; Z82.49 Family history of ischemic heart disease and other diseases of the circulatory system; Z79.899 Other long term (current) drug therapy; Z88.0 Allergy status to penicillin
CPT/HCPCS: 96372; 99285; 36415; 93005 ×2; 93017; 93306; 80061; 80053; 80048; 83690; 83735; 84484 ×2; 85025; 85027; 85610; 85730; 71046; 71275; 74174; 78452; G0378 ×2; A9500; S4990; J1644; J2785; Q9967